=== PATIENT | male | born 1950 | race Caucasian/White ===

== ENCOUNTER 2021-01-09 21:40 | Inpatient (IN) ==
[2021-01-09] MEDS ORDERED: ONDANSETRON 4 MG/2 ML VIAL IV STA (22:02)
[2021-01-09] MEDS ORDERED: HYDROmorphone 2 MG/1 ML VIAL IV STA (22:02)
[2021-01-09 23:03] LABS: Basophils # 0.1 10*3/uL (0.0-0.2); Basophils % 0.3 % (0.0-0.8); Eosinophils # 0.1 10*3/uL (0.0-0.87); Eosinophils % 0.3 % (0.00-10.9); Hematocrit 38.4 VOL% (42.0-52.0); Hemoglobin 12.6 GM/DL (14.0-18.0); Immature Granulocytes % 0.7 %; Immature Granulocytes Absolute 0.14 #; Lymphocytes # 1.2 10*3/uL (1.4-4.0); Lymphocytes % 6.3 % (21.2-54.2); Mean Corpuscular HGB Conc 32.8 GM/DL (32-36); Mean Corpuscular Volume 93.2 FL (87-102); Mean Platelet Volume 11.2 FL (9.6-12.0); Monocytes % 4.3 % (1.7-12.7); Neutrophils % 88.1 % (38.7-73.9); Platelet Count 241 T/CUMM (130-400); Red Blood Count 4.12 MC/CUMM (3.8-5.5); Red Cell Distribution Width 12.9 % (9.3-17.3); White Blood Count 19.5 T/CUMM (4-12)
[2021-01-09 23:25] LABS: Albumin 3.8 G/DL (3.4-5.0); Bilirubin,Total 1.2 MG/DL (0.20-1.00); Calcium 8.8 MG/DL (8.5-10.1); Osmolality,Calculated 286.5 MOS/KG (273-304); Total Protein 7.1 G/DL (6.4-8.2)
[2021-01-09 23:45] LABS: PT Patient Result 10.9 SECS (10.5-12.0)
[2021-01-10 00:30] LABS: Bilirubin,Urine Negative (Negative); Blood, Urine Negative (Negative); Glucose,Urine (UA) >=500 mg/dL (Negative); Ketones,Urine 5 mg/dL (Negative); Mucus,Urine Occasional /LPF (Occasional); Nitrite,Urine Negative (Negative); Protein,Urine 30 MG/DL; Squamous Epithelial Cell,Urine Occasional /HPF (0-10); Urine Appearance CLEAR (Clear); Urine Color Yellow (Yellow); Urine Urobilinogen < 2.0 EU/DL (0.2-1.0)
[2021-01-10] MEDS ORDERED: GLUCAGON 1 MG VIAL IM PRN (00:53)
[2021-01-10] MEDS ORDERED: ALUMINUM/MAGNES/SIMETH MAX STR 30 ML UDCUP PO PRN (00:53)
[2021-01-10] MEDS ORDERED: ONDANSETRON 4 MG/2 ML VIAL IV PRN (00:53)
[2021-01-10] MEDS ORDERED: DEXTROSE 50% 25 GM/50 ML VIAL IV PRN (00:53)
[2021-01-10] MEDS: hydrALAZINE 20 MG/1 ML VIAL IV PRN (03:43)
[2021-01-10 05:53] LABS: Basophils % 0.3 % (0.0-0.8); Eosinophils % 0.1 % (0.00-10.9); Hematocrit 36.9 VOL% (42.0-52.0); Hemoglobin 12.3 GM/DL (14.0-18.0); Immature Granulocytes Absolute 0.15 #; Lymphocytes # 1.2 10*3/uL (1.4-4.0); Lymphocytes % 7.3 % (21.2-54.2); Mean Corpuscular HGB Conc 33.3 GM/DL (32-36); Mean Corpuscular Volume 93.9 FL (87-102); Mean Platelet Volume 11.3 FL (9.6-12.0); Monocytes % 5.4 % (1.7-12.7); Neutrophils % 85.9 % (38.7-73.9); Platelet Count 234 T/CUMM (130-400); Red Blood Count 3.93 MC/CUMM (3.8-5.5); Red Cell Distribution Width 12.8 % (9.3-17.3); White Blood Count 15.7 T/CUMM (4-12)
[2021-01-10 06:12] LABS: Calcium 8.5 MG/DL (8.5-10.1); Osmolality,Calculated 285.7 MOS/KG (273-304); Potassium 4.1 MMOL/L (3.5-5.1); Risk Ratio 3.18; VLDL Cholesterol 15.8 MG/DL
[2021-01-10] MEDS ORDERED: ceFAZolin 2,000 MG/50 ML DUPLEX IV ONE (06:43)
[2021-01-10] MEDS ORDERED: BACITRACIN OINT 0.9 GM PACK TOP ONE (07:03)
[2021-01-10] MEDS ORDERED: DEXAMETHASONE 4 MG/1 ML VIAL ONE ×2 (07:39→09:21)
[2021-01-10] MEDS ORDERED: ONDANSETRON 4 MG/2 ML VIAL ONE (07:39)
[2021-01-10] MEDS ORDERED: BUPIVACAINE MPF 0.25% 30 ML VIAL ONE (07:39)
[2021-01-10] MEDS ORDERED: MIDAZOLAM 2 MG/2 ML VIAL ONE (07:40)
[2021-01-10] MEDS ORDERED: fentaNYL 250 MCG/5 ML VIAL ONE (07:40)
[2021-01-10] MEDS ORDERED: ROCURONIUM 50 MG/5 ML VIAL IV ONE (07:40)
[2021-01-10] MEDS ORDERED: propofoL 200 MG/20 ML VIAL IV ONE (07:40)
[2021-01-10] MEDS ORDERED: LIDOCAINE 2% 5 ML VIAL ONE ×2 (07:40→07:48)
[2021-01-10] MEDS ORDERED: SUCCINYLCHOLINE 200 MG/10 ML VIAL ONE (07:40)
[2021-01-10] MEDS ORDERED: PROMETHAZINE 25 MG/1 ML VIAL ONE (07:50)
[2021-01-10] MEDS: INSULIN REGULAR 100 UNIT/ML SUBCUT SCH ×4 (08:34→22:37)
[2021-01-10] MEDS ORDERED: PHENYLEPHRINE 10 MG/1 ML VIAL IV ONE (09:20)
[2021-01-10] MEDS ORDERED: SODIUM CHLORIDE 0.9% 200 ML IV ONE (09:20)
[2021-01-10] MEDS ORDERED: LACTATED RINGERS 1,000 ML IV ONE (09:20)
[2021-01-10] MEDS ORDERED: NEOSTIGMINE 10 MG/10 ML VIAL ONE (09:21)
[2021-01-10] MEDS ORDERED: GLYCOPYRROLATE 0.4 MG/2 ML VIAL ONE (09:21)
[2021-01-10] MEDS ORDERED: MORPHINE 2 MG/1 ML SYRINGE IV PRN ×2 (09:42)
[2021-01-10] MEDS ORDERED: MAGNESIUM HYDROXIDE SUSP 30 ML UDCUP PO PRN (09:42)
[2021-01-10 09:57] LABS: Bilirubin,Urine Negative (Negative); Blood, Urine Negative (Negative); Glucose,Urine (UA) >=500 mg/dL (Negative); Ketones,Urine 5 mg/dL (Negative); Mucus,Urine Occasional /LPF (Occasional); Nitrite,Urine Negative (Negative); Protein,Urine 30 MG/DL; RBC,Urine <1 /HPF (0-4); Squamous Epithelial Cell,Urine Occasional /HPF (0-10); Urine Appearance CLEAR (Clear); Urine Color Yellow (Yellow); Urine Specific Gravity 1.021 (1.001-1.035); Urine Urobilinogen < 2.0 EU/DL (0.2-1.0)
[2021-01-10] MEDS: DOCUSATE SODIUM 100 MG CAPSULE PO SCH ×2 (12:45→22:38)
[2021-01-10] MEDS: LACTATED RINGERS 1,000 ML IV SCH (12:46)
[2021-01-10] MEDS: PANTOPRAZOLE 40 MG TABLET PO SCH (12:46)
[2021-01-10] MEDS ORDERED: HALOPERIDOL 5 MG/ML AMP IM PRN (15:49)
[2021-01-10] MEDS: ceFAZolin 2,000 MG/50 ML DUPLEX IV SCH ×2 (15:52→22:39)
[2021-01-10] MEDS: PRAMIPEXOLE 0.25 MG TABLET PO SCH (22:38)
[2021-01-10] MEDS: OLANZapine 2.5 MG TABLET PO SCH (22:39)
[2021-01-10] MEDS: SIMVASTATIN 10 MG TABLET PO SCH (22:39)
[2021-01-10] MEDS: IPRATROPIUM 0.03% NASAL SPRAY 30 ML BOTTLE BOTH NARES SCH (22:43)
[2021-01-11] MEDS: FONDAPARINUX 2.5 MG/0.5 ML SYRINGE SUBCUT SCH (05:04)
[2021-01-11 05:11] LABS: Basophils % 0.1 % (0.0-0.8); Hematocrit 30.2 VOL% (42.0-52.0); Hemoglobin 9.8 GM/DL (14.0-18.0); Immature Granulocytes % 0.8 %; Immature Granulocytes Absolute 0.14 #; Lymphocytes # 1.2 10*3/uL (1.4-4.0); Lymphocytes % 6.7 % (21.2-54.2); Mean Corpuscular HGB Conc 32.5 GM/DL (32-36); Mean Corpuscular Volume 95.6 FL (87-102); Mean Platelet Volume 11.6 FL (9.6-12.0); Monocytes % 5.4 % (1.7-12.7); Platelet Count 204 T/CUMM (130-400); Red Blood Count 3.16 MC/CUMM (3.8-5.5); Red Cell Distribution Width 13.1 % (9.3-17.3); White Blood Count 17.4 T/CUMM (4-12)
[2021-01-11 05:27] LABS: Calcium 7.8 MG/DL (8.5-10.1); Osmolality,Calculated 288.3 MOS/KG (273-304); Potassium 4.2 MMOL/L (3.5-5.1)
[2021-01-11] MEDS: LACTATED RINGERS 1,000 ML IV SCH ×2 (05:38→23:40)
[2021-01-11] MEDS: INSULIN REGULAR 100 UNIT/ML SUBCUT SCH ×4 (08:50→22:02)
[2021-01-11] MEDS: CITALOPRAM 20 MG TABLET PO SCH (09:54)
[2021-01-11] MEDS: PANTOPRAZOLE 40 MG TABLET PO SCH (09:54)
[2021-01-11] MEDS: DOCUSATE SODIUM 100 MG CAPSULE PO SCH ×2 (09:54→22:00)
[2021-01-11] MEDS: TAMSULOSIN 0.4 MG CAPSULE PO SCH (09:54)
[2021-01-11] MEDS ORDERED: BISACODYL 5 MG TABLET PO ONE (09:58)
[2021-01-11] MEDS: amLODIPine 10 MG TABLET PO SCH (14:44)
[2021-01-11] MEDS: OLANZapine 2.5 MG TABLET PO SCH (21:59)
[2021-01-11] MEDS: IPRATROPIUM 0.03% NASAL SPRAY 30 ML BOTTLE BOTH NARES SCH (21:59)
[2021-01-11] MEDS: PRAMIPEXOLE 0.25 MG TABLET PO SCH (21:59)
[2021-01-11] MEDS: SIMVASTATIN 10 MG TABLET PO SCH (21:59)
[2021-01-12] MEDS: hydrALAZINE 20 MG/1 ML VIAL IV PRN (01:08)
[2021-01-12] MEDS: FONDAPARINUX 2.5 MG/0.5 ML SYRINGE SUBCUT SCH (05:22)
[2021-01-12 05:43] LABS: Basophils % 0.3 % (0.0-0.8); Eosinophils # 0.1 10*3/uL (0.0-0.87); Eosinophils % 0.4 % (0.00-10.9); Hematocrit 30.5 VOL% (42.0-52.0); Hemoglobin 9.7 GM/DL (14.0-18.0); Immature Granulocytes % 0.9 %; Lymphocytes # 1.8 10*3/uL (1.4-4.0); Lymphocytes % 15.8 % (21.2-54.2); Mean Corpuscular HGB Conc 31.8 GM/DL (32-36); Mean Corpuscular Volume 97.1 FL (87-102); Mean Platelet Volume 11.7 FL (9.6-12.0); Monocytes % 7.7 % (1.7-12.7); Neutrophils % 74.9 % (38.7-73.9); Platelet Count 201 T/CUMM (130-400); Red Blood Count 3.14 MC/CUMM (3.8-5.5); Red Cell Distribution Width 13.3 % (9.3-17.3); White Blood Count 11.5 T/CUMM (4-12)
[2021-01-12 06:08] LABS: Calcium 7.8 MG/DL (8.5-10.1); Osmolality,Calculated 285.1 MOS/KG (273-304); Potassium 3.2 MMOL/L (3.5-5.1)
[2021-01-12] MEDS: INSULIN REGULAR 100 UNIT/ML SUBCUT SCH ×4 (07:38→21:11)
[2021-01-12] MEDS: CITALOPRAM 20 MG TABLET PO SCH (10:50)
[2021-01-12] MEDS: DOCUSATE SODIUM 100 MG CAPSULE PO SCH ×2 (10:50→21:12)
[2021-01-12] MEDS: BISACODYL 10 MG SUPP RECTAL SCH ×2 (10:50→21:18)
[2021-01-12] MEDS: TAMSULOSIN 0.4 MG CAPSULE PO SCH (10:51)
[2021-01-12] MEDS: POLYETHYLENE GLYCOL POWDER 17 GM PACK PO SCH (10:51)
[2021-01-12] MEDS: amLODIPine 10 MG TABLET PO SCH (10:51)
[2021-01-12] MEDS: PANTOPRAZOLE 40 MG TABLET PO SCH (10:52)
[2021-01-12] MEDS: CALCIUM CARBONATE CHEW 500 MG TABLET PO PRN ×2 (12:05→21:12)
[2021-01-12] MEDS: POTASSIUM CHLORIDE 20 MEQ TABLET PO PRN ×3 (15:18→22:59)
[2021-01-12] MEDS: PRAMIPEXOLE 0.25 MG TABLET PO SCH (21:12)
[2021-01-12] MEDS: IPRATROPIUM 0.03% NASAL SPRAY 30 ML BOTTLE BOTH NARES SCH (21:12)
[2021-01-12] MEDS: SIMVASTATIN 10 MG TABLET PO SCH (21:13)
[2021-01-12] MEDS: OLANZapine 2.5 MG TABLET PO SCH (21:13)
[2021-01-13] MEDS: POTASSIUM CHLORIDE 20 MEQ TABLET PO PRN (00:59)
[2021-01-13] MEDS: FONDAPARINUX 2.5 MG/0.5 ML SYRINGE SUBCUT SCH (04:53)
[2021-01-13 05:58] LABS: Basophils % 0.4 % (0.0-0.8); Eosinophils # 0.2 10*3/uL (0.0-0.87); Eosinophils % 2.1 % (0.00-10.9); Hematocrit 30.4 VOL% (42.0-52.0); Hemoglobin 9.8 GM/DL (14.0-18.0); Immature Granulocytes % 0.8 %; Immature Granulocytes Absolute 0.08 #; Lymphocytes # 1.9 10*3/uL (1.4-4.0); Lymphocytes % 19.8 % (21.2-54.2); Mean Corpuscular HGB Conc 32.2 GM/DL (32-36); Mean Corpuscular Volume 96.2 FL (87-102); Mean Platelet Volume 11.6 FL (9.6-12.0); Monocytes % 7.6 % (1.7-12.7); Neutrophils % 69.3 % (38.7-73.9); Platelet Count 216 T/CUMM (130-400); Red Blood Count 3.16 MC/CUMM (3.8-5.5); Red Cell Distribution Width 12.8 % (9.3-17.3); White Blood Count 9.5 T/CUMM (4-12)
[2021-01-13 06:32] LABS: Calcium 8.2 MG/DL (8.5-10.1); Osmolality,Calculated 279.7 MOS/KG (273-304); Potassium 4.2 MMOL/L (3.5-5.1)
[2021-01-13] MEDS: CITALOPRAM 20 MG TABLET PO SCH (09:01)
[2021-01-13] MEDS: DOCUSATE SODIUM 100 MG CAPSULE PO SCH (09:02)
[2021-01-13] MEDS: PANTOPRAZOLE 40 MG TABLET PO SCH (09:02)
[2021-01-13] MEDS: TAMSULOSIN 0.4 MG CAPSULE PO SCH (09:02)
[2021-01-13] MEDS: amLODIPine 10 MG TABLET PO SCH (09:03)
[2021-01-13] MEDS: IPRATROPIUM 0.03% NASAL SPRAY 30 ML BOTTLE BOTH NARES SCH ×3 (09:03→11:30)
[2021-01-13] MEDS: INSULIN REGULAR 100 UNIT/ML SUBCUT SCH ×3 (09:03→16:03)
[2021-01-13] MEDS: BISACODYL 10 MG SUPP RECTAL SCH (09:04)
[2021-01-13] MEDS: POLYETHYLENE GLYCOL POWDER 17 GM PACK PO SCH (09:04)
[2021-01-13 11:44] VITALS: BP 178/63
== END 2021-01-13 16:20 | disposition swing bed (61) | DRG 481 ==
LOC: EDBD → EDUNIT# → N.ED 21:40 → N.EDINP 01-10 00:04 → SUATTDRO 01-10 00:04 → N.3E 01-10 00:28
PROVIDERS: ADMIT Internal Medicine; ATTEND Internal Medicine